=== PATIENT | male | born 1940 | race Caucasian/White ===

== ENCOUNTER → 2020-10-06 | Outpatient (CLI) | payer MEDICARE, OTHER ==
[~2020-10-06] MED LIST: ATOR10 PO; CIPR500 PO; ELIQUIS5 MG PO; FOSI10; HYDACE10B PO; HYDACE5 PO; HYDCHL12.5; LAVAP17G PO; LEVSOD50 PO; LOSA50 PO; METO50ER PO; VITAMIN D-32000 UNIT PO
[2020-10-07 13:16] LABS: C DIFFICILE DNA POSITIVE (Negative)
== END | disposition home or self-care (01) ==
LOC: LAB 10:09 → LAB SHORT 10:09
PROVIDERS: Physician Assistant
DX: R19.7 Diarrhea, unspecified (principal)
CPT/HCPCS: 87324; 87493

== ENCOUNTER → 2020-11-01 | Outpatient (CLI) | payer MEDICARE, OTHER ==
[~2020-11-01] MED LIST changes: +ASPI325EC PO; +OYSTER SHELL 51 EAC3 PO; +SULFAMETHOXAZO1 EAC1 PO; +SYNTHROID50 MC1 PO; +Vitamin B-121000 MCG PO
[2020-11-01 18:50] LABS: BASOPHILS ABSOLUTE AUTO 0.05 K/mm3 (0.00-0.23); BASOPHILS PERCENT AUTO 1 % (0-2); EOSINOPHILS ABSOLUTE AUTO 0.24 K/mm3 (0.00-0.68); EOSINOPHILS PERCENT AUTO 3 % (0-6); Hematocrit 41.8 % (37.0-53.0); Hemoglobin 14.5 g/dL (13.5-17.5); IMMATURE GRAN ABSOLUTE AUTO 0.05 K/mm3 (0.00-0.10); IMMATURE GRAN PERCENT AUTO 1 % (0-1); LYMPHOCYTES PERCENT AUTO 18 % (21-46); MONOCYTES ABSOLUTE AUTO 1.14 K/mm3 (0.16-1.47); MONOCYTES PERCENT AUTO 16 % (4-13); Mean Corpuscular HGB 32.8 pg (26.0-34.0); Mean Corpuscular HGB Conc 34.7 g/dL (31.5-36.5); Mean Corpuscular Volume 95 fL (80-100); NEUTROPHILS ABSOLUTE AUTO 4.47 K/mm3 (1.96-9.15); NEUTROPHILS PERCENT AUTO 62 % (41-73); RDW Coefficient Variation 12.3 % (11.7-14.2); RDW Standard Deviation 42.5 fL (35.1-46.3); Red Blood Cell Count 4.42 M/mm3 (4.30-5.90); White Blood Cell Count 7.25 K/mm3 (4.00-11.30)
[2020-11-01 18:52] LABS: Mean Platelet Volume 10.3 fL (9.1-12.4)
[2020-11-01 19:19] LABS: Platelet Count 234 K/mm3 (150-400)
== END | disposition home or self-care (01) ==
LOC: LAB SHORT 18:37 → LAB 18:37
PROVIDERS: Physician Assistant
DX: R10.9 Unspecified abdominal pain (principal)
CPT/HCPCS: 85025

== ENCOUNTER 2020-11-02 13:06 | Inpatient (IN) | payer MEDICARE, OTHER ==
[~2020-11-02] VITALS: Ht 172.7 cm; Wt 64.0 kg
[~2020-11-02 13:06] MED LIST changes: -ASPI325EC PO; -OYSTER SHELL 51 EAC3 PO; -SULFAMETHOXAZO1 EAC1 PO; -SYNTHROID50 MC1 PO; -Vitamin B-121000 MCG PO
[2020-11-02 13:37] LABS: BASOPHILS ABSOLUTE AUTO 0.02 K/mm3 (0.00-0.23); BASOPHILS PERCENT AUTO 0 % (0-2); EOSINOPHILS ABSOLUTE AUTO 0.05 K/mm3 (0.00-0.68); EOSINOPHILS PERCENT AUTO 1 % (0-6); Hematocrit 39.8 % (37.0-53.0); Hemoglobin 13.4 g/dL (13.5-17.5); IMMATURE GRAN ABSOLUTE AUTO 0.03 K/mm3 (0.00-0.10); IMMATURE GRAN PERCENT AUTO 1 % (0-1); LYMPHOCYTES ABSOLUTE AUTO 1.18 K/mm3 (0.84-5.20); LYMPHOCYTES PERCENT AUTO 19 % (21-46); MONOCYTES PERCENT AUTO 16 % (4-13); Mean Corpuscular HGB 31.9 pg (26.0-34.0); Mean Corpuscular HGB Conc 33.7 g/dL (31.5-36.5); Mean Corpuscular Volume 95 fL (80-100); Mean Platelet Volume 10.1 fL (9.1-12.4); NEUTROPHILS ABSOLUTE AUTO 3.89 K/mm3 (1.96-9.15); NEUTROPHILS PERCENT AUTO 63 % (41-73); Platelet Count 232 K/mm3 (150-400); RDW Coefficient Variation 12.2 % (11.7-14.2); RDW Standard Deviation 42.5 fL (35.1-46.3); White Blood Cell Count 6.17 K/mm3 (4.00-11.30)
[2020-11-02 13:55] LABS: Albumin, Blood 2.9 g/dL (3.4-5.0); Albumin/Globulin Ratio 0.9 (0.8-1.8); Bilirubin, Total 0.6 mg/dL (0.1-1.0); Bun/Creatinine Ratio 9.6 (12.0-20.0); Calcium, Blood 8.6 mg/dL (8.5-10.1); Creatinine, Blood 1.78 mg/dL (0.60-1.20); Globulin, Blood 3.3 g/dL (2.2-4.0); Potassium, Blood 4.3 mmol/L (3.5-5.5); Total Protein, Blood 6.2 g/dL (6.4-8.2)
[2020-11-02 17:25] LABS: Source, Urine Catheter
[2020-11-02] MEDS ORDERED: SYNTHROID50 MC1 PO (17:31)
[2020-11-02 17:37] LABS: Appearance, Urine Hazy (Clear); Bilirubin, Urine Neg (Neg); Blood, Urine 2+ (Neg); Color, Urine Yellow (P-Yellow); Glucose Qualitative, Urine Neg (Neg); Ketones, Urine 3+ (Neg); Leukocyte Esterase, Urine 1+ (Neg); Nitrite, Urine Neg (Neg); Protein, Urine 3+ (Neg); Urobilinogen, Urine NORM (Normal)
[2020-11-02] MEDS ORDERED: ASPI325EC PO (17:38)
[2020-11-02] MEDS ORDERED: Vitamin B-121000 MCG PO (17:39)
[2020-11-02] MEDS ORDERED: OYSTER SHELL 51 EAC3 PO (17:39)
[2020-11-02 17:43] LABS: Hematocrit 37.6 % (37.0-53.0); Hemoglobin 12.5 g/dL (13.5-17.5)
[2020-11-02 17:59] LABS: Bacteria Mod /hpf; Calcium Oxalate Crystals Few /hpf; Squamous Epithelial Cells Few /hpf (Few)
[2020-11-02 18:57] LABS: C DIFFICILE DNA POSITIVE (Negative)
[2020-11-02] MEDS ORDERED: SULFAMETHOXAZO1 EAC1 PO (19:44)
[2020-11-02 23:46] LABS: Hemoglobin 12.1 g/dL (13.5-17.5)
--- NOTE | 2020-11-03 04:26 | NUR ---
SHIFT SUMMARY PATIENT IS ALERT AND ORIENTED x4. vs STABLE FOR PATIENT ON RA. NO COMPLAINTS OF SHORTNESS OF BREATH OR CHEST PAIN. AMADOR IN PLACE. DID NOT REPLCE AMADOR MY SHIFT, AMADOR WAS PLAED BY UROLOGIST. URINE SENT ORDERED. ALL ORDERS INITIATED ORDERED. ENCOURAGED PATIENT TO CALL WHEN IN NEED OF ASSISTANCE, TURN Q2hr. ALL ORDERS COMPLETED AND MEDICATION GIVEN ORDERED ACCORDING TO NURSING JUDGEMENT. aLL UNIFINISHED CARES ENDORSED TO ONCOMING rn. c. DIFF PRECAUTIONS INITIATED ORDERED.
[2020-11-03 05:41] LABS: BASOPHILS ABSOLUTE AUTO 0.05 K/mm3 (0.00-0.23); BASOPHILS PERCENT AUTO 1 % (0-2); Hematocrit 37.2 % (37.0-53.0); Hemoglobin 12.2 g/dL (13.5-17.5); LYMPHOCYTES PERCENT AUTO 20 % (21-46); MONOCYTES ABSOLUTE AUTO 1.06 K/mm3 (0.16-1.47); MONOCYTES PERCENT AUTO 14 % (4-13); Mean Corpuscular HGB 31.6 pg (26.0-34.0); Mean Corpuscular HGB Conc 32.8 g/dL (31.5-36.5); Mean Corpuscular Volume 96 fL (80-100); Platelet Count 218 K/mm3 (150-400); RDW Coefficient Variation 12.5 % (11.7-14.2); RDW Standard Deviation 43.9 fL (35.1-46.3); Red Blood Cell Count 3.86 M/mm3 (4.30-5.90); White Blood Cell Count 7.84 K/mm3 (4.00-11.30)
[2020-11-03 05:45] LABS: EOSINOPHILS ABSOLUTE AUTO 0.23 K/mm3 (0.00-0.68); EOSINOPHILS PERCENT AUTO 3 % (0-6); IMMATURE GRAN ABSOLUTE AUTO 0.03 K/mm3 (0.00-0.10); IMMATURE GRAN PERCENT AUTO 0 % (0-1); NEUTROPHILS ABSOLUTE AUTO 4.87 K/mm3 (1.96-9.15); NEUTROPHILS PERCENT AUTO 62 % (41-73)
[2020-11-03 06:02] LABS: Albumin, Blood 2.5 g/dL (3.4-5.0); Albumin/Globulin Ratio 0.9 (0.8-1.8); Bilirubin, Total 0.5 mg/dL (0.1-1.0); Bun/Creatinine Ratio 9.2 (12.0-20.0); Calcium, Blood 8.2 mg/dL (8.5-10.1); Creatinine, Blood 1.42 mg/dL (0.60-1.20); Globulin, Blood 2.7 g/dL (2.2-4.0); Total Protein, Blood 5.2 g/dL (6.4-8.2)
--- NOTE | 2020-11-03 09:00 | NUR ---
DNR BAND DNR band verified with licensed home inspector Sofia, placed to R wrist. Patient confirmed code status is DNR.
[2020-11-03 11:29] LABS: Hematocrit 34.5 % (37.0-53.0); Hemoglobin 11.4 g/dL (13.5-17.5)
--- NOTE | 2020-11-03 12:45 | NUR ---
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 DIFF CC:MICHAEL DANILO CALL: RESIDENCE: HOME WITH SPOUSE CAREGIVER: ASIA LOCKHART, SPOUSE / PARTNER, JOE BASILIO, FAMILY MEMBER, DX: AFIB, HTN, CKD-STAGE 3, TIA, SEE LIST DME: [employer]-WHE[employer] [facility] CCM: NONE HOME HEALTH: [id number] SUMMARY: 11/03/20- PER CHART REVIEW, PT IS DNR/DNI AND WILL NEED TO COMPLETE A POLST PRIOR TO DISCHARGE. -MARYELLENB
--- NOTE | 2020-11-03 17:16 | NUR ---
Shift Summary A/Ox3, pleasant and cooperative with care. Calls appropriately. C/O / abdominal cramping pain, denied the need to be medicated for pain. Urena patent and draining. No bowel movements this shift. Appetite is good. NS @ 100. Records request has been faxed to [facility] twice, second one with STAT written on the request per specialty sales representative. Still, no records received. VSS.
[2020-11-04 04:37] LABS: BASOPHILS ABSOLUTE AUTO 0.04 K/mm3 (0.00-0.23); BASOPHILS PERCENT AUTO 1 % (0-2); EOSINOPHILS ABSOLUTE AUTO 0.25 K/mm3 (0.00-0.68); EOSINOPHILS PERCENT AUTO 5 % (0-6); Hematocrit 32.6 % (37.0-53.0); Hemoglobin 11.1 g/dL (13.5-17.5); IMMATURE GRAN ABSOLUTE AUTO 0.03 K/mm3 (0.00-0.10); IMMATURE GRAN PERCENT AUTO 1 % (0-1); LYMPHOCYTES ABSOLUTE AUTO 1.78 K/mm3 (0.84-5.20); LYMPHOCYTES PERCENT AUTO 35 % (21-46); MONOCYTES ABSOLUTE AUTO 0.72 K/mm3 (0.16-1.47); MONOCYTES PERCENT AUTO 14 % (4-13); Mean Corpuscular HGB 32.6 pg (26.0-34.0); Mean Corpuscular Volume 96 fL (80-100); Mean Platelet Volume 9.9 fL (9.1-12.4); NEUTROPHILS ABSOLUTE AUTO 2.22 K/mm3 (1.96-9.15); NEUTROPHILS PERCENT AUTO 44 % (41-73); Platelet Count 185 K/mm3 (150-400); RDW Coefficient Variation 12.5 % (11.7-14.2); Red Blood Cell Count 3.41 M/mm3 (4.30-5.90); White Blood Cell Count 5.04 K/mm3 (4.00-11.30)
[2020-11-04 05:02] LABS: Albumin, Blood 2.3 g/dL (3.4-5.0); Bilirubin, Total 0.5 mg/dL (0.1-1.0); Bun/Creatinine Ratio 6.6 (12.0-20.0); Calcium, Blood 7.7 mg/dL (8.5-10.1); Creatinine, Blood 1.21 mg/dL (0.60-1.20); Globulin, Blood 2.4 g/dL (2.2-4.0); Potassium, Blood 3.9 mmol/L (3.5-5.5); Total Protein, Blood 4.7 g/dL (6.4-8.2)
--- NOTE | 2020-11-04 05:14 | NUR ---
Received patient in bed AAOx3. IV fluids infusing patently.Complains of abdominal pain. Medicated with good result. Urena draining clear yellow urine. Safety measures implemented. Call light within reach. Instructed patient to call for assistance if needed. Vital signs stable. Sinus rhythm on monitor. Will continue with plan of care.
--- NOTE | 2020-11-04 17:19 | NUR ---
Shift Summary C/O urgency with bowels, SBA to bedside commode as needed. Incontinence with mucousy yellow stools, very minimal though. Urena intact and draining clear yellow urine. Plan for flex sig scope, NPO orders after midnight. No request for pain medication. Eager to go home. NS @ 100.
[2020-11-05 04:02] LABS: Adenovirus F 40/41 Not Detected (NOT DETECT); Astrovirus Not Detected (NOT DETECT); Campylobacter Sp Not Detected (NOT DETECT); Cryptosporidium Not Detected (NOT DETECT); Cyclospora Cayetanensis Not Detected (NOT DETECT); E. Coli O157 Not Detected (NOT DETECT); Entamoeba Histolytica Not Detected (NOT DETECT); Enteroaggregative E. coli-EAEC Not Detected (NOT DETECT); Enteropathogenic E. coli-EPEC Not Detected (NOT DETECT); Enterotoxigenic E. coli-ETEC Not Detected (NOT DETECT); Giardia Lamblia Not Detected (NOT DETECT); Norovirus GI/GII Not Detected (NOT DETECT); Plesiomonas Shigelloides Not Detected (NOT DETECT); Rotavirus A Not Detected (NOT DETECT); Salmonella Sp Not Detected (NOT DETECT); Sapovirus Not Detected (NOT DETECT); Shiga Toxin-prod E. coli-STEC Not Detected (NOT DETECT); Shigella/Enteroin E. coli-EIEC Not Detected (NOT DETECT); Vibrio Cholerae Not Detected (NOT DETECT); Vibrio Sp Not Detected (NOT DETECT); Yersinia Enterocolitica Not Detected (NOT DETECT)
--- NOTE | 2020-11-05 05:13 | NUR ---
SHIFT SUMMARY- PT. A&OX3, NPO SINCE TX FOR SCHEDULED SIGMOIDOSCOPY. COMPLAINTS OF ABD CRAMPING LAST NIGHT. MEDICATED 2X PER EMAR WITH GOOD EFFECT. FEW LOOSE GREEN BM'S DURING THE NIGHT, ATTENDS IN PLACE. PT. SLEPT T/O THE NIGHT, NO APPARENT DISTRESS NOTED. DENIED ANY OTHER NEEDS, VSS. CALL LIGHT WITHIN REACH, SIDE RAILS UPX2, AND BED ALARM ON FOR SAFETY. WILL CONT TO MONITOR.
--- NOTE | 2020-11-05 09:05 | NUR ---
DC ISOLATION PATIENT TESTED POSITIVE FOR C-DIFF AT ADMISSION, NEGATIVE FOR TOXINS. GI PANEL ORDERED D/T CHANGE IN BOWEL COLOR (MUCOUSY TO GREENISH). RESULT WAS NEGATIVE. DISCUSSED WITH RACHNA FROM INFECTION CONTROL, OK TO D/C ISO.
[2020-11-05 09:53] LABS: SARS-Cov-2 (COVID-19) PCR, MMC NEGATIVE (NEGATIVE)
--- NOTE | 2020-11-05 11:44 | NUR ---
11/05/20 1144 Parveen Cantor HISTORY,CHART, MEDICATIONS AND ALLERGIES REVIEWED BEFORE START OF PROCEDURE. PATIENT CONFIRMS NPO STATUS AND AGREES WITH SCHEDULED PROCEDURE. 3-LEAD EKG REVIEWED WITH PHYSICIAN PRIOR TO START OF PROCEDURE. MONITOR INTACT WITH CONTINUOUS PULSE OXIMETRY AND INTERMITTENT BP. SUPPLEMENTAL O2 TO BE TITRATED THROUGHOUT PROCEDURE TO MAINTAIN O2 SATURATION ABOVE 90%. PATIENT DETERMINED TO BE ASA APPROPRIATE FOR MODERATE SEDATION PRIOR TO START OF PROCEDURE BY DR. MADRIGAL.
--- NOTE | 2020-11-05 12:43 | NUR ---
RESUME BRAT DIET PER V.O. FROM KAREN OLIVO TO RESUME BRAT DIET.
--- NOTE | 2020-11-05 13:35 | NUR ---
POLST POLST completed by Dr. Rae and placed in front of patient's chart.
--- NOTE | 2020-11-05 17:41 | NUR ---
Shift Summary Looking forward to the thought of possibly going home tomorrow. Medicated x 1 for 5/10 abdominal cramping pain with minimal relief. Having more loose watery stools today, incontinence. Urena patent, draining. NS infusing. Not really a fan of BRAT diet and would like to change diet, per Dr. Roach, keep BRAT diet. Moriah () updated.
[2020-11-05 18:18] LABS: Alanine Aminotransfer (ALT/SGP 13 U/L (12-78); Albumin, Blood 2.2 g/dL (3.4-5.0); Albumin/Globulin Ratio 0.7 (0.8-1.8); Alk Phos 59 U/L (50-136); Anion Gap 6 mmol/L (6-16); Aspartate Aminotrans (AST/SGOT 14 U/L (12-37); Bilirubin, Total 0.3 mg/dL (0.1-1.0); Blood Urea Nitrogen 3 mg/dL (8-24); Bun/Creatinine Ratio 2.9 (12.0-20.0); CO2, Blood 23 mmol/L (21-32); Calcium, Blood 7.7 mg/dL (8.5-10.1); Chloride, Blood 110 mmol/L (98-108); Creatinine, Blood 1.02 mg/dL (0.60-1.20); Glomerular Filtration Rate >60 (60-); Glucose, Blood 109 mg/dL (70-99); Sodium, Blood 139 mmol/L (136-145); Total Protein, Blood 5.2 g/dL (6.4-8.2)
--- NOTE | 2020-11-05 19:00 | NUR ---
ASSUMED CARE RECEIVED REPORT FROM CLARENCE MCCORD. PT RESTING, IN NAD. NO ACUTE NEEDS ASSESSED AT THIS TIME. CALL LIGHT, POSSESSIONS IN REACH, BED ALARM ON.
[2020-11-06 04:54] LABS: BASOPHILS ABSOLUTE AUTO 0.07 K/mm3 (0.00-0.23); BASOPHILS PERCENT AUTO 1 % (0-2); EOSINOPHILS ABSOLUTE AUTO 0.49 K/mm3 (0.00-0.68); EOSINOPHILS PERCENT AUTO 5 % (0-6); Hemoglobin 12.8 g/dL (13.5-17.5); IMMATURE GRAN ABSOLUTE AUTO 0.12 K/mm3 (0.00-0.10); IMMATURE GRAN PERCENT AUTO 1 % (0-1); LYMPHOCYTES ABSOLUTE AUTO 1.63 K/mm3 (0.84-5.20); LYMPHOCYTES PERCENT AUTO 17 % (21-46); MONOCYTES ABSOLUTE AUTO 1.34 K/mm3 (0.16-1.47); MONOCYTES PERCENT AUTO 14 % (4-13); Mean Corpuscular HGB 32.4 pg (26.0-34.0); Mean Corpuscular HGB Conc 34.6 g/dL (31.5-36.5); Mean Corpuscular Volume 94 fL (80-100); NEUTROPHILS ABSOLUTE AUTO 6.18 K/mm3 (1.96-9.15); NEUTROPHILS PERCENT AUTO 63 % (41-73); Platelet Count 214 K/mm3 (150-400); RDW Coefficient Variation 12.5 % (11.7-14.2); RDW Standard Deviation 43.6 fL (35.1-46.3); Red Blood Cell Count 3.95 M/mm3 (4.30-5.90); White Blood Cell Count 9.83 K/mm3 (4.00-11.30)
--- NOTE | 2020-11-06 07:00 | NUR ---
SHIFT SUMMARY PT RESTING, IN NAD, NO ACUTE CHANGES TO REPORT OVERNIGHT, APPEARED TO SLEEP WELL. VS REVIEWED,WNL. PAIN MANAGED WITH MEDS PER EMAR. NO ACUTE CONCERNS NOTED. NO ACUTE NEEDS ASSESSED AT THIS TIME. CALL LIGHT, POSSESSIONS IN REACH, BED IN LOW AND LOCKED POSITION WITH ALARMS ON. REPORT GIVEN TO CLARENCE SHAY.
[2020-11-06 17:47] LABS: Alanine Aminotransfer (ALT/SGP 11 U/L (12-78); Albumin, Blood 1.8 g/dL (3.4-5.0); Albumin/Globulin Ratio 0.7 (0.8-1.8); Alk Phos 50 U/L (50-136); Anion Gap 6 mmol/L (6-16); Aspartate Aminotrans (AST/SGOT 12 U/L (12-37); Bilirubin, Total 0.4 mg/dL (0.1-1.0); Blood Urea Nitrogen 2 mg/dL (8-24); Bun/Creatinine Ratio 1.9 (12.0-20.0); CO2, Blood 24 mmol/L (21-32); Calcium, Blood 7.4 mg/dL (8.5-10.1); Chloride, Blood 110 mmol/L (98-108); Creatinine, Blood 1.06 mg/dL (0.60-1.20); Globulin, Blood 2.6 g/dL (2.2-4.0); Glomerular Filtration Rate >60 (60-); Glucose, Blood 100 mg/dL (70-99); Potassium, Blood 3.7 mmol/L (3.5-5.5); Sodium, Blood 140 mmol/L (136-145); Total Protein, Blood 4.4 g/dL (6.4-8.2)
--- NOTE | 2020-11-06 18:58 | NUR ---
ASSUMED CARE RECEIVED REPORT FROM CLARENCE SHAY. PT RESTING, IN NAD. NO ACUTE NEEDS ASSESSED AT THIS TIME. CALL LIGHT, POSSESSIONS IN REACH.
--- NOTE | 2020-11-06 18:59 | NUR ---
END OF SHIFT SUMMARY: PATIENT REPORTED NAUSEA AND ABDOMINAL DISCOMFORT THIS MORNING. MEDICATED PER PRNS AND DISCUSSED WITH DR. GRANT. MEDICATED WITH SIMETHICONE. PATIENT REPORTED SOME RELIEF. BY THE END OF THE SHIFT, PATIENT REPORTED THAT HIS ABDOMEN WAS FEELING PRETTY COMFORTABLE WITH OCCASIONAL TWINGES OF DISCOMFORT. PATIENT HAS VERY MINIMAL APPETITE. PATIENT REPORTED THAT HE PREFERS TO SIP ON LIQUIDS. ENCOURAGED ENSURE CLEARS. PATIENT PREFERRED TO SIP ON CRANBERRY JUICE. PATIENT UP TO THE CHAIR FOR BREAKFAST. REFUSED LUNCH AND DINNER. PATIENT CONTINUES TO BE INCONTINENT OF DARK GREEN, LOOSE STOOLS. SOME THICKER CONSISTENCY NOTED ON THE STOOL.
[2020-11-07 04:34] LABS: BASOPHILS ABSOLUTE AUTO 0.06 K/mm3 (0.00-0.23); BASOPHILS PERCENT AUTO 1 % (0-2); EOSINOPHILS ABSOLUTE AUTO 0.49 K/mm3 (0.00-0.68); EOSINOPHILS PERCENT AUTO 6 % (0-6); Hematocrit 31.4 % (37.0-53.0); Hemoglobin 10.9 g/dL (13.5-17.5); IMMATURE GRAN PERCENT AUTO 1 % (0-1); LYMPHOCYTES ABSOLUTE AUTO 1.88 K/mm3 (0.84-5.20); LYMPHOCYTES PERCENT AUTO 23 % (21-46); MONOCYTES PERCENT AUTO 15 % (4-13); Mean Corpuscular HGB 32.6 pg (26.0-34.0); Mean Corpuscular HGB Conc 34.7 g/dL (31.5-36.5); Mean Corpuscular Volume 94 fL (80-100); NEUTROPHILS ABSOLUTE AUTO 4.31 K/mm3 (1.96-9.15); NEUTROPHILS PERCENT AUTO 54 % (41-73); Platelet Count 182 K/mm3 (150-400); RDW Coefficient Variation 12.9 % (11.7-14.2); RDW Standard Deviation 43.9 fL (35.1-46.3); Red Blood Cell Count 3.34 M/mm3 (4.30-5.90); White Blood Cell Count 8.04 K/mm3 (4.00-11.30)
--- NOTE | 2020-11-07 05:44 | NUR ---
SHIFT SUMMARY PT RESTING IN BED COMFORTABLY, IN NAD. H&H IMPROVED POST TRANSFUSION OF PRBCS, PT TOLERATED WELL, NO S/S ADVERSE REACTIONS NOTED. APPEARED TO SLEEP OFF AND ON T/O NIGHT. VS REVIEWED,WNL; AFEBRILE. PAIN MANAGED WITH MEDS PER EMAR. NO ACUTE NEEDS ASSESSED AT THIS TIME. CALL LIGHT, POSSESSIONS IN REACH. BED IN LOW AND LOCKED POSITION. WILL REPORT OFF TO ONCOMING RN.
--- NOTE | 2020-11-07 06:01 | NUR ---
SHIFT SUMMARY PT ASLEEP, IN NAD. NO ACUTE CONCERNS TO REPORT OVERNIGHT. VS REVIEWED, BP'S STABLE. NO LOOSE STOOLS OVERNIGHT. NO C/O NAUSEA. NO ACUTE NEEDS ASSESSED AT THIS TIME. CALL LIGHT, POSSESSIONS IN REACH, BED IN LOW AND LOCKED POSITION WITH ALARMS ON. WILL REPORT OFF TO ONCOMING RN.
--- NOTE | 2020-11-07 14:17 | NUR ---
FAMILY UPDATE- SPOKE WITH PTS DAUGHTER JOE REGARDING D/C PLANNING AND NEEDS. DAUGHTER REPORTS THAT THE PT HAS BEEN PRETTY SICK FOR ABOUT 5 YEARS BUT REALLY DECLINED THE LAST 1-2 MONTHS. DAUGHTER REPORTS THAT PT'S IS HIS PRIMARY CAREGIVER AND HAS MANAGED PRETTY WELL BUT HAS STRUGGLED THE LAST FEW MONTHS WITH BATHING AND TOLIETING HE BECAME MORE INC OF BOWELS. DAUGHTER REPORTS THAT SHE BELIVES HE WOULD BE "DEVASTATED" TO GO TO A SNF AND THINKS THAT GETTING HOME HEALTH WOULD BE BEST ESPECIALLY IF HE COULD GET SET UP WITH A BED A FEW TIMES A WEEK. SHE SAID SHE HAS BEEN ENCOURAGING HER PARENTS TO HIRE AN HAND CLERICAL VERIFIER FOR A WHILE AND THINKS THAT WOULD BE VERY HELPFUL.
--- NOTE | 2020-11-07 17:19 | NUR ---
SHIFT SUMMARY 79 YR MALE ADMITTED WITH COLITIS WITH RECENT HX OF C-DIFF. PT HAS HAD NO BM TODAY AND REPORTS HIS ABD PAIN HAS IMPROVED SOME. PT C/O OF POOR APPETITE AND DISLIKE OF BRAT DIET. GI EVALUATED TODAY AND ADVANCED DIET TO CARDIAC SOFT. PT SEEMED TO TOLERATED LUNCH WELL. PT WAS EVALUATED BY PT TODAY WITH RECOMMENDATIONS FOR SNF OF . PT AND FAMILY SEEM TO OREFER D/C HOME WITH HOME HEALTH AT THIS TIME. NO OTHER ACUTE CHANGES THIS SHIFT.
[2020-11-07 17:56] LABS: Albumin, Blood 1.9 g/dL (3.4-5.0); Albumin/Globulin Ratio 0.7 (0.8-1.8); Bilirubin, Total 0.4 mg/dL (0.1-1.0); Bun/Creatinine Ratio 1.7 (12.0-20.0); Calcium, Blood 7.2 mg/dL (8.5-10.1); Creatinine, Blood 1.18 mg/dL (0.60-1.20); Globulin, Blood 2.7 g/dL (2.2-4.0); Potassium, Blood 4.1 mmol/L (3.5-5.5); Total Protein, Blood 4.6 g/dL (6.4-8.2)
--- NOTE | 2020-11-07 19:33 | NUR ---
ASSUMED CARE RECEIVED REPORT FROM CLARENCE MENCHACA. PT RESTING, IN NAD. NO ACUTE NEEDS ASSESSED AT THIS TIME. CALL LIGHT, POSSESSIONS IN REACH, BED IN LOW AND LOCKED POSITION WITH ALARMS ON.
--- NOTE | 2020-11-08 04:28 | NUR ---
SHIFT SUMMARY PT RESTING, IN NAD. APPEARED TO SLEEP ON AND OFF T/O NIGHT. TOLERATING CARDIAC DIET WELL. MEDICATED FOR NAUSEA AND PAIN X1. VS REVIEWED,WNL; BP'S STABLE. STOOLS BECOMING MORE FORMED. PT REPORTS ABD PAIN, RELIEVED BY PRN SIMETHICONE. NO OTHER ACUTE CONCERNS TO REPORT OVERNIGHT. DENIES NEEDS. CALL LIGHT, POSSESSIONS IN REACH, BED IN LOW AND LOCKED POSITION. WILL REPORT OFF TO ONCOMING RN.
[2020-11-08 04:58] LABS: BASOPHILS ABSOLUTE AUTO 0.08 K/mm3 (0.00-0.23); BASOPHILS PERCENT AUTO 1 % (0-2); EOSINOPHILS ABSOLUTE AUTO 0.57 K/mm3 (0.00-0.68); EOSINOPHILS PERCENT AUTO 5 % (0-6); Hematocrit 37.3 % (37.0-53.0); Hemoglobin 12.7 g/dL (13.5-17.5); IMMATURE GRAN ABSOLUTE AUTO 0.11 K/mm3 (0.00-0.10); IMMATURE GRAN PERCENT AUTO 1 % (0-1); LYMPHOCYTES ABSOLUTE AUTO 1.77 K/mm3 (0.84-5.20); LYMPHOCYTES PERCENT AUTO 16 % (21-46); MONOCYTES ABSOLUTE AUTO 1.48 K/mm3 (0.16-1.47); MONOCYTES PERCENT AUTO 14 % (4-13); Mean Corpuscular HGB 31.8 pg (26.0-34.0); Mean Corpuscular Volume 93 fL (80-100); Mean Platelet Volume 9.8 fL (9.1-12.4); NEUTROPHILS ABSOLUTE AUTO 6.82 K/mm3 (1.96-9.15); NEUTROPHILS PERCENT AUTO 63 % (41-73); Platelet Count 213 K/mm3 (150-400); RDW Coefficient Variation 13.2 % (11.7-14.2); White Blood Cell Count 10.83 K/mm3 (4.00-11.30)
--- NOTE | 2020-11-08 15:51 | NUR ---
Per chart review with Dr. Barreto, he feels that the pt will be stable for discharge on Sunday. Pt is still on some IV medications and those will need to be switched over to oral prior to discharge. The discharge plan is for the pt to go to [facility], SNF. Started pt's packet for SNF review and will have to send tomorrow. ([employer] went down during charting and also [place]. Unable to order any equipment or put notes into either system. Attempted to call , but the phones are also down.) -alonsob
--- NOTE | 2020-11-08 17:04 | NUR ---
SHIFT SUMMARY NO ACUTE CHANGES. PT HAS BEEN TOLERATING CARDIAC DIET WITH A LITTLE NAUSEA. NEEDS ENCOURAGEMNET FROM STAFF AND DR TO EAT MORE OF HIS MEALS. , TALYA, REPORTS HE DOESN'T EAT MUCH AT HOME. PT HAS HAD PASTY BROWN STOOL THIS PM AND SOME LOWER ABDOMENT TENDERNESS. DR WOULD LIKE TO KEEP HIM UNTIL FAMILY CAN FIND ADEQUEATE CARE PT STATES HE DOES NOT WANT TO GO TO A SNF. PT IS HOPEFUL TO DISCHARGE TOMORROW HOME WITH A FULLTIME OIL EXPELLER OPERATOR. WILL CONTINUE TO MONITOR.
[2020-11-08 17:55] LABS: Alanine Aminotransfer (ALT/SGP 12 U/L (12-78); Albumin, Blood 1.9 g/dL (3.4-5.0); Albumin/Globulin Ratio 0.7 (0.8-1.8); Alk Phos 51 U/L (50-136); Anion Gap 2 mmol/L (6-16); Aspartate Aminotrans (AST/SGOT 14 U/L (12-37); Bilirubin, Total 0.4 mg/dL (0.1-1.0); Blood Urea Nitrogen 4 mg/dL (8-24); Bun/Creatinine Ratio 3.5 (12.0-20.0); CO2, Blood 28 mmol/L (21-32); Calcium, Blood 7.6 mg/dL (8.5-10.1); Chloride, Blood 111 mmol/L (98-108); Creatinine, Blood 1.13 mg/dL (0.60-1.20); Globulin, Blood 2.7 g/dL (2.2-4.0); Glomerular Filtration Rate >60 (60-); Glucose, Blood 146 mg/dL (70-99); Potassium, Blood 4.2 mmol/L (3.5-5.5); Sodium, Blood 141 mmol/L (136-145); Total Protein, Blood 4.6 g/dL (6.4-8.2)
--- NOTE | 2020-11-09 04:10 | NUR ---
NO ACUTE CHANGES OR SIGNIFICANT EVENTS OCCURED OVERNIGHT. DENIES PAIN, DENIES NAUSEA.
[2020-11-09 04:38] LABS: BASOPHILS ABSOLUTE AUTO 0.05 K/mm3 (0.00-0.23); BASOPHILS PERCENT AUTO 1 % (0-2); EOSINOPHILS ABSOLUTE AUTO 0.48 K/mm3 (0.00-0.68); EOSINOPHILS PERCENT AUTO 5 % (0-6); Hemoglobin 12.3 g/dL (13.5-17.5); IMMATURE GRAN PERCENT AUTO 1 % (0-1); LYMPHOCYTES ABSOLUTE AUTO 1.86 K/mm3 (0.84-5.20); LYMPHOCYTES PERCENT AUTO 18 % (21-46); MONOCYTES PERCENT AUTO 13 % (4-13); Mean Corpuscular HGB 31.9 pg (26.0-34.0); Mean Corpuscular HGB Conc 34.2 g/dL (31.5-36.5); Mean Corpuscular Volume 93 fL (80-100); Mean Platelet Volume 9.7 fL (9.1-12.4); NEUTROPHILS ABSOLUTE AUTO 6.75 K/mm3 (1.96-9.15); NEUTROPHILS PERCENT AUTO 63 % (41-73); Platelet Count 212 K/mm3 (150-400); RDW Coefficient Variation 13.4 % (11.7-14.2); Red Blood Cell Count 3.86 M/mm3 (4.30-5.90); White Blood Cell Count 10.64 K/mm3 (4.00-11.30)
--- NOTE | 2020-11-09 08:25 | NUR ---
Per chart review with Dr. Barreto, he feels that the pt will be stable for discharge on Sunday. Pt is still on some IV medications and those will need to be switched over to oral prior to discharge. The discharge plan is for the pt to go to [facility], SNF. Started pt's packet for SNF review and will have to send tomorrow. ([employer] went down during charting and also [employer]. Unable to order any equipment or put notes into either system. Attempted to call , but the phones are also down.) -alonsob
--- NOTE | 2020-11-09 14:54 | NUR ---
11/09/20- ATTEMPTED TO REACH TO DO CARE ASSESSMENT AND DISCUSS DISCHARGE PLAN. LMOM. RETURNED PHONE CALL AND SHE STATES THAT BOTH AND HER PT DO NOT WANT PT GOING TO SNF BUT WANT HIM TO GO HOME WITH HOME HEALTH. REPORTS THAT PT WAS INDEPENDENT PRIOR TO COMING INTO THE HOSPITAL AND SHE WOULD HELP WITH SOME NEEDS. REPORTS THAT HE USES HIS WALKER TO GET AROUND THE HOME AND HAS BEEN DOING SPONGE BATHS BECAUSE HE FEELS THE SHOWER IS TOO CROWDED. REPORTS THAT THEIR HOME IS A SINGLE STORY HOME WITH WORKING UTILITIES. THERE IS A RAMP TO GET INTO THE HOME. REPORTS THAT PHARMACY IS [facility] OR [facility] AND SHE MANAGES HIS MEDICATIONS. REPORTS THAT SHE WILL COME TO ASSISTANT THE PT WHEN HE IS READY TO BE DISCHARGED. PER CHART REVIEW WITH DR. JOSHI, DISCUSSED CONVERSATION WITH AND REFUSAL FOR PT TO GO TO SNF. THE PLAN IS FOR THE PT TO GO HOME WITH HOME HEALTH THROUGH [facility], PT, OT, BATHAIDE. DR. JOSHI IS GOING TO HAVE PALLIATIVE CONSULT ABOUT PT'S INCREASE CARE NEEDS.-MARYELLENB
[2020-11-09 17:40] LABS: Alanine Aminotransfer (ALT/SGP 9 U/L (12-78); Albumin, Blood 1.7 g/dL (3.4-5.0); Albumin/Globulin Ratio 0.6 (0.8-1.8); Alk Phos 47 U/L (50-136); Anion Gap 5 mmol/L (6-16); Aspartate Aminotrans (AST/SGOT 15 U/L (12-37); Bilirubin, Total 0.4 mg/dL (0.1-1.0); Blood Urea Nitrogen 3 mg/dL (8-24); Bun/Creatinine Ratio 2.8 (12.0-20.0); CO2, Blood 26 mmol/L (21-32); Calcium, Blood 7.6 mg/dL (8.5-10.1); Chloride, Blood 111 mmol/L (98-108); Creatinine, Blood 1.09 mg/dL (0.60-1.20); Globulin, Blood 2.7 g/dL (2.2-4.0); Glomerular Filtration Rate >60 (60-); Glucose, Blood 106 mg/dL (70-99); Potassium, Blood 3.7 mmol/L (3.5-5.5); Sodium, Blood 142 mmol/L (136-145); Total Protein, Blood 4.4 g/dL (6.4-8.2)
--- NOTE | 2020-11-09 18:38 | NUR ---
SHIFT SUMMARY PATHOLOGY REPORT RETURNED REPORTING COLONIZATION OF CDIFF. WAITING ON PALLIATIVE CONSULT TO DETERMINE PTS WISHES FOR DISCHARGE. PT CONTINUES TO NOT HAVE MUCH APPETITE AND ONLY EATS A SMALL PART OF MEALS. COMPLAINT WITH ABX TODAY. WILL CONTINUE TO MONITOR.
[2020-11-10 05:44] LABS: BASOPHILS ABSOLUTE AUTO 0.05 K/mm3 (0.00-0.23); BASOPHILS PERCENT AUTO 1 % (0-2); EOSINOPHILS PERCENT AUTO 6 % (0-6); Hematocrit 35.2 % (37.0-53.0); Hemoglobin 12.1 g/dL (13.5-17.5); IMMATURE GRAN ABSOLUTE AUTO 0.09 K/mm3 (0.00-0.10); IMMATURE GRAN PERCENT AUTO 1 % (0-1); LYMPHOCYTES ABSOLUTE AUTO 1.88 K/mm3 (0.84-5.20); LYMPHOCYTES PERCENT AUTO 23 % (21-46); MONOCYTES ABSOLUTE AUTO 1.24 K/mm3 (0.16-1.47); MONOCYTES PERCENT AUTO 15 % (4-13); Mean Corpuscular HGB 31.9 pg (26.0-34.0); Mean Corpuscular HGB Conc 34.4 g/dL (31.5-36.5); Mean Corpuscular Volume 93 fL (80-100); Mean Platelet Volume 9.6 fL (9.1-12.4); NEUTROPHILS PERCENT AUTO 55 % (41-73); Platelet Count 211 K/mm3 (150-400); RDW Coefficient Variation 14.1 % (11.7-14.2); RDW Standard Deviation 47.8 fL (35.1-46.3); Red Blood Cell Count 3.79 M/mm3 (4.30-5.90); White Blood Cell Count 8.36 K/mm3 (4.00-11.30)
--- NOTE | 2020-11-10 06:17 | NUR ---
PATIENT COMPLAINED OF ABDOMINAL PAIN. NORCO GIVEN TWICE AND HE SLEPT WELL.AMADOR INTACT. DRAINING. DENIES NAUSEA. NO ACUTE CHANGES IN CONDITION NOTED OVERNIGHT.
--- NOTE | 2020-11-10 14:35 | NUR ---
per chart review with Dr. Barreto, pt is being followed by GI and pathology has come back on the pt. He is still on IV antibiotics and plan is to discharge later this week once IV antibiotics have been completed. -evelin
--- NOTE | 2020-11-10 18:47 | NUR ---
SHIFT SUMMARY NO ACUTE CHANGES THIS SHIFT
--- NOTE | 2020-11-11 04:24 | NUR ---
SHIFT SUMMARRY PATIENT COMPLAINED OF ABDOMINAL PAIN. PRN NORCOGIVENAS ORDERED WITH GOOD EFFECTS. NO ACUTE MEDICAL CHANGES THIS SHIFT.
--- NOTE | 2020-11-11 13:02 | NUR ---
per chart review with Dr. Barreto, pt is doing well. Plan is for the pt to finish IV antibiotics tomorrow and will discharge after. Pt will have home health services with [facility]. [email or web address]
--- NOTE | 2020-11-11 16:57 | NUR ---
SHIFT SUMMARY THE PATIENT IS ALERT AND ORIENTED AND COOPERATIVE WITH CARE. THE PATIENT WORKED WITH PHYSICAL THERAPY THIS SHIFT. THEY HAVE BEEN WORKING ON IMPROVING THEIR FLUID INTAKE WELL. THE PATIENT HAS A POOR DIET, BUT DID DRINK SOME BROTH THIS SHIFT. THE PATIENT HAS BEEN MEDICATED FOR ABDOMINAL PAIN PRN PER THE EMAR. VSS, NO ACUTE CHANGES THIS SHIFT. THE PATIENT MAY POSSIBLY DISCHARGE TOMMORROW.
--- NOTE | 2020-11-12 06:34 | NUR ---
PATIENT SUMMARY PATIENT IS ALERT AND ORIENTED X4. NO COMPLAINTS OF SHORTNESS OF BREATH OR CHEST PAIN. VS STABLE FOR PATIENT ON RA. PATIENT COMPLAINED OF ABD PAIN X2 MY SHIFT. ADEQUATE URINE OUTPUT. PATIENT WAS ABLE TO SLEEP THROUGHOUT NIGHT. ALL CARES COMPLETED AND MEDICATIONS GENERATION ENGINEERING TECHNOLOGIST PER NURSING JUDGEMENT ACCORDING TO MD ORDER. ALL UNFINISHED CARES ENDORSED TO ONCOMIG RN. ENCOURAGED PATIENT TO TURN FOR SKIN PROTECTION Q2HR AND TO INCREASE ACTIVITY TOLERATED. ENCOURAGED PATIENT TO EAT SMALL FREQUENT MEALS.
[2020-11-12] MEDS ORDERED: MIRT15 PO (10:31)
[2020-11-12] MEDS ORDERED: VISBIOME 112.51 EACH PO (10:33)
[2020-11-12] MEDS ORDERED: VANCOCIN HCL250 MG PO (10:33)
--- NOTE | 2020-11-12 11:42 | NUR ---
Pt is medically stable to discharge. is coming to get him and go over discharge instructions. She [facility] Pt will have home health services through [facility]. [email or web address] ([email or web address], 11:42 AM)
--- NOTE | 2020-11-12 13:00 | NUR ---
DISCHARGE NOTE THE PATIENT WAS DISCHARGED HOME VIA WHEELCHAIR TO THEIR SPOUSE. THE PATIENT AND SPOUSE WERE GIVEN DISCHARGE INSTRUCTIONS. THE PATIENT AND SPOUSE VERBALLY UNDERSTOOD INSTRUCTIONS. THE PATIENT WILL FOLLOW UP WITH [facility] WITHIN 3 DAYS.
== END 2020-11-12 12:18 | disposition home health service (06) | DRG 372 ==
LOC: ER 13:06 → MEDS 17:22 → ENPENDDIS 11-12 10:02 → MEDS 11-12 12:18
PROVIDERS: Emergency Medicine; Family Medicine; Student in an Organized Health Care Education/Training Program; ADMIT Internal Medicine
PROC: 0DBG8ZX Excision of Left Large Intestine, Via Natural or Artificial Opening Endoscopic, Diagnostic (ICD-10-PCS; principal; 2020-11-05 11:30)
DX: A04.72 Enterocolitis due to Clostridium difficile, not specified as recurrent (principal); T83.518A Infection and inflammatory reaction due to other urinary catheter, initial encounter; N39.0 Urinary tract infection, site not specified; N17.9 Acute kidney failure, unspecified; D62 Acute posthemorrhagic anemia; K63.3 Ulcer of intestine; Z68.1 Body mass index [BMI] 19.9 or less, adult; N41.9 Inflammatory disease of prostate, unspecified; E86.0 Dehydration; I48.91 Unspecified atrial fibrillation; Z66 Do not resuscitate; E78.5 Hyperlipidemia, unspecified; H91.90 Unspecified hearing loss, unspecified ear; R54 Age-related physical debility; R63.0 Anorexia; K57.30 Diverticulosis of large intestine without perforation or abscess without bleeding; I12.9 Hypertensive chronic kidney disease with stage 1 through stage 4 chronic kidney disease, or unspecified chronic kidney disease; Z20.822 Contact with and (suspected) exposure to COVID-19; N18.31 Chronic kidney disease, stage 3a; R33.8 Other retention of urine; E89.0 Postprocedural hypothyroidism; Z85.46 Personal history of malignant neoplasm of prostate; Z86.010 Personal history of colon polyps; Z98.41 Cataract extraction status, right eye; Z98.890 Other specified postprocedural states; Z90.49 Acquired absence of other specified parts of digestive tract; Y84.6 Urinary catheterization as the cause of abnormal reaction of the patient, or of later complication, without mention of misadventure at the time of the procedure; Z92.3 Personal history of irradiation; Z87.440 Personal history of urinary (tract) infections; Z79.82 Long term (current) use of aspirin; Z79.899 Other long term (current) drug therapy
CPT/HCPCS: 0097U; 36415; 74022; 74176; 80053; 81001; 82272; 85014; 85018; 85025; 86850; 86900; 86901; 87015; 87045; 87046; 87077; 87086; 87186; 87205; 87324; 87493; 87899; 88305; 93005; 93010; 96365; 96375; 97110; 97116; 97162; 97530; 99285-25; A9270; J0744; J2250; J2270; J2405; J2704; J3010; J7030; J7120; U0004

== ENCOUNTER → 2020-12-01 | Outpatient (CLI) | payer MEDICARE, OTHER ==
[~2020-12-01] MED LIST changes: +ASPI325EC PO; +MIRT15 PO; +OYSTER SHELL 51 EAC3 PO; +SULFAMETHOXAZO1 EAC1 PO; +SYNTHROID50 MC1 PO; +VANCOCIN HCL250 MG PO; +VISBIOME 112.51 EACH PO; +Vitamin B-121000 MCG PO
[2020-12-01 15:53] LABS: BASOPHILS ABSOLUTE AUTO 0.08 K/mm3 (0.00-0.23); BASOPHILS PERCENT AUTO 1 % (0-2); EOSINOPHILS ABSOLUTE AUTO 0.26 K/mm3 (0.00-0.68); EOSINOPHILS PERCENT AUTO 2 % (0-6); Hemoglobin 13.9 g/dL (13.5-17.5); IMMATURE GRAN ABSOLUTE AUTO 0.04 K/mm3 (0.00-0.10); IMMATURE GRAN PERCENT AUTO 0 % (0-1); LYMPHOCYTES ABSOLUTE AUTO 2.97 K/mm3 (0.84-5.20); LYMPHOCYTES PERCENT AUTO 24 % (21-46); MONOCYTES PERCENT AUTO 9 % (4-13); Mean Corpuscular HGB 31.1 pg (26.0-34.0); Mean Corpuscular HGB Conc 33.1 g/dL (31.5-36.5); Mean Corpuscular Volume 94 fL (80-100); Mean Platelet Volume 9.3 fL (9.1-12.4); NEUTROPHILS ABSOLUTE AUTO 8.08 K/mm3 (1.96-9.15); NEUTROPHILS PERCENT AUTO 65 % (41-73); Platelet Count 347 K/mm3 (150-400); RDW Coefficient Variation 14.6 % (11.7-14.2); Red Blood Cell Count 4.47 M/mm3 (4.30-5.90); White Blood Cell Count 12.53 K/mm3 (4.00-11.30)
[2020-12-01 16:20] LABS: Albumin, Blood 2.6 g/dL (3.4-5.0); Albumin/Globulin Ratio 0.7 (0.8-1.8); Bilirubin, Total 0.4 mg/dL (0.1-1.0); Calcium, Blood 9.2 mg/dL (8.5-10.1); Creatinine, Blood 1.4 mg/dL (0.60-1.20); Globulin, Blood 3.5 g/dL (2.2-4.0); Potassium, Blood 4.5 mmol/L (3.5-5.5); Total Protein, Blood 6.1 g/dL (6.4-8.2)
== END | disposition home or self-care (01) ==
LOC: LAB 15:47 → LAB SHORT 15:47
PROVIDERS: Physician Assistant
DX: R63.4 Abnormal weight loss (principal)
CPT/HCPCS: 80053; 85025